=== PATIENT | male | born 1990 | race Caucasian/White ===

== ENCOUNTER 2019-03-04 11:25 | Emergency (ER) | payer BC ==
[2019-03-04 13:10] LABS: Urine Appearance Clear; Urine Bilirubin Negative (Negative); Urine Blood Negative (Negative); Urine Color Straw; Urine Glucose Negative (Negative); Urine Ketones Negative (Negative); Urine Nitrite Negative (Negative); Urine Protein Negative (Negative); Urine Specific Gravity 1.004 (1.010-1.030); Urine Urobilinogen Negative (Negative)
[2019-03-04 13:43] VITALS: BP 124/79
--- NOTE | 2019-03-04 13:50 | ED ---
Abdominal Pain/Male - HPI Summary HPI Summary: Patient is a 28-year-old male presenting to the ED with LLQ pain after his corgi jumped up on his lap. He states he felt immediate 10/10 pain into the LLQ which radiated down into the groin and into the left flank. He states symptoms remained for 30 minutes to 1 hour before they started to dissipate. He is endorsing a dull ache now, but no severe pain. He states he was able to eat and drink following the trauma. He also states he has remained ambulatory. There is no bruising to the area. He denies any other symptoms including urinary symptoms or back pain otherwise. No history of abdominal surgeries, however had a hydrocelectomy as a child. He denies any testicular pain. - History of Current Complaint Chief Complaint: EDAbdPain Stated Complaint: SHARP LOWER ABD/FLANK PAIN PER PT Time Seen by Provider: 03/04/19 12:12 Hx Obtained From: Patient Onset/Duration: Sudden Onset Timing: Constant Severity Initially: Moderate Severity Currently: Moderate Pain Intensity: 0 Pain Scale Used: 0-10 Numeric Radiates: Yes Radiates to: Flank Character: Cramping Aggravating Factor(s): Nothing Alleviating Factor(s): Nothing Associated Signs And Symptoms: Positive: Negative. Negative: Fever, Cough, Constipation, Blood in Stool, Urinary Symptoms, Decreased Appetite, Vomiting, Diarrhea, Penile Discharge - Risk Factors Testicular Torsion: Negative Cardiac Risk Factors: Negative - Allergies/Home Medications Allergies/Adverse Reactions: Allergies Allergy/AdvReac Type Severity Reaction Status Date / Time amoxicillin Allergy Hives Verified 09/14/18 20:57 PMH/Surg Hx/FS Hx/Imm Hx Previously Healthy: Yes - Immunization History Hx Pertussis Vaccination: No Immunizations Up to Date: Yes Infectious Disease History: No Infectious Disease History: Denies: Traveled Outside the [place] in Last 30 Days - Family History Known Family History: Positive: None - Social History Occupation: Employed Full-time Lives: With Family Alcohol Use: Weekly Alcohol Amount: one drink Hx Substance Use: No Substance Use Type: Reports: None Hx Tobacco Use: Yes Smoking Status (MU): Heavy Every Day Tobacco Smoker Have You Smoked in the Last Year: Yes Review of Systems Negative: Fever, Chills, Fatigue, Skin Diaphoresis Negative: Palpitations, Chest Pain Negative: Shortness Of Breath, Cough Positive: Abdominal Pain - left lower quadrant pain Genitourinary: Negative Positive: no symptoms reported, see HPI Negative: Arthralgia, Myalgia Skin: Negative Neurological: Negative All Other Systems Reviewed And Are Negative: Yes - the level to light Physical Exam Triage Information Reviewed: Yes Vital Signs On Initial Exam: Initial Vitals Temp Pulse Resp BP Pulse Ox 98.8 F 95 18 137/91 99 03/04/19 11:28 03/04/19 11:28 03/04/19 11:28 03/04/19 11:28 03/04/19 11:28 Vital Signs Reviewed: Yes Appearance: Positive: Well-Appearing, Well-Nourished Skin: Positive: Warm, Skin Color Reflects Adequate Perfusion Head/Face: Positive: Normal Head/Face Inspection Eyes: Positive: EOMI, KRIS, Conjunctiva Clear Neck: Positive: Supple, No Lymphadenopathy Respiratory/Lung Sounds: Positive: Clear to Auscultation, Breath Sounds Present Cardiovascular: Positive: RRR, Pulses are Symmetrical in both Upper and Lower Extremities Bowel Sounds: Positive: Present Musculoskeletal: Positive: Normal, Strength/ROM Intact Neurological: Positive: Sensory/Motor Intact, Alert, Oriented to Person Place, Time, Speech Normal Psychiatric: Positive: Normal, Affect/Mood Appropriate AVPU Assessment: Alert Diagnostics - Vital Signs Vital Signs Temp Pulse Resp BP Pulse Ox 03/04/19 13:25 98.0 F 80 16 124/79 98 03/04/19 11:28 98.8 F 95 18 137/91 99 - Laboratory Lab Results: Lab Results 03/04/19 Range/Units 12:44 Urine Color Straw Urine Appearance Clear Urine pH 7.0 (5-9) Ur Specific [place] 1.004 L (1.010-1.030) Urine Protein Negative (Negative) Urine Ketones Negative (Negative) Urine Blood Negative (Negative) Urine Nitrate Negative (Negative) Urine Bilirubin Negative (Negative) Urine Urobilinogen Negative (Negative) Ur Leukocyte Esterase Negative (Negative) Urine Glucose Negative (Negative) Lab Statement: Any lab studies that have been ordered have been reviewed, and results considered in the medical decision making process. Abdominal Pain Male Course/Dx - Course Course Of Treatment: During this course treatment, the patient is evaluated for LLQ pain which is radiating to the left flank and left inguinal area. On physical examination, there is no evidence of trauma including ecchymosis, bulging, erythema or evidence of a hernia. The testicle is without pain, erythema or evidence of torsion. No flank pain bilaterally. Patient states his current pain is rated a 2/10, down from 10/10 prior to arrival. UA obtained which is negative for any findings. Patient eating and drinking well in the ED. ambulating well. - Diagnoses Differential Diagnosis/HQI/PQRI: Constipation, Diverticulitis, Testicular Torsion, Ureteral Stone, Urinary Tract Infection Provider Diagnoses: Left lower quadrant pain Discharge - Sign-Out/Discharge Documenting (check all that apply): Patient Departure Patient Received Moderate/Deep Sedation with Procedure: No - Discharge Plan Condition: Stable Disposition: HOME Patient Education Materials: Contusion in Adults (ED) Forms: *Work Release Referrals: Isidoro Galloway DO [Primary Care Provider] - Additional Instructions: You have a contusion to the left lower abdomen If you begin to have any worsening symptoms, please return to the ED Tylenol 650mg three times daily for discomfort Moist heat to the area - Billing Disposition and Condition Condition: STABLE Disposition: Home - Attestation Statements Scribe Attestation: I was available for consultation for this patient. I did not evaluate the patient or participate in any medical decision making or disposition decisions unless I am specifically named in the chart as having consulted on the patient. If I have consulted on the patient, please see my own ED note on the patient encounter. Devendra Mendenhall MD
== END 2019-03-04 13:28 | disposition home or self-care (01) ==
LOC: ED 11:25
DX: R10.32 Left lower quadrant pain (principal); Z72.0 Tobacco use
CPT/HCPCS: 81003; 99281

== ENCOUNTER 2019-05-14 20:57 | Emergency (ER) | payer BC ==
--- OUTSIDE RECORDS SUMMARY | 2019-05-14 21:03 | XMS REPORT | Summary of Care ---
:1990 Author Organization [facility] Address [address] [place] [place] [address] Care Team Providers Name Role Phone Isidoro Galloway DO Primary Care Provider Reason for Visit Reason Comments Follow Up follow up from last week; neck pain worsened to point of difficulty swallowing; yesturday not as bad and left ear continues to be painful Encounter Details Date Type Department Care Team Description 03/29/2019 Office Visit [facility] Isidoro Galloway, Strain of sternocleidomastoid muscle, subsequent encounter (Primary Dx); Practice DO Dysfunction of Eustachian tube, unspecified laterality; [address] [place] [address] [address] [phone] [place] [address] [phone] Allergies Active Allergy Reactions Severity Noted Date Comments Amoxicillin Hives 09/26/2018 documented as of this encounter (statuses as of 03/29/2019) Medications Medication Sig Dispensed Refills Start Date End Date Status amphetamine-dextroamphetam Take 1 Tab by 0 Active ine (ADDERALL, 10MG,) 10 mouth TWICE MG Oral Tab DAILY. amphetamine-dextroamphetam Take 20 mg by 0 Active ine (ADDERALL XR) 20 MG mouth TWICE Oral CAPSULE SR 24 HR DAILY. citalopram (CELEXA) 20 MG Take 20 mg by 0 Active Oral Tab mouth DAILY. lamotrigine (LAMICTAL) 100 Take 100 mg by 0 Active MG Oral Tab mouth DAILY. cyclobenzaprine (FLEXERIL) Take 1 Tab by 7 Tab 0 03/20/2019 Active 10 MG Oral TabIndications: mouth EVERY Strain of BEDTIME. sternocleidomastoid muscle, initial encounter Omeprazole 40 MG Oral Take 1 Cap by 90 Cap 1 03/20/2019 Active CAPSULE DELAYED mouth BEFORE RELEASEIndications: BREAKFAST. Gastroesophageal reflux disease, esophagitis presence not specified Varenicline Tartrate 0.5 Take 1 Package 1 Kit 0 03/20/2019 Active MG X 11 & 1 MG X 42 Oral by mouth MiscIndications: Smoking DIRECTED. trying to quit mometasone (NASONEX) 50 [place] 2 Sprays 1 Bottle 4 03/20/2019 Active MCG/ACT Nasal in nose SuspensionIndications: DIRECTED. 2 Chronic rhinitis, ETD sprays in each (Eustachian tube nostril once dysfunction), bilateral daily documented as of this encounter (statuses as of 03/29/2019) Active Problems Problem Noted Date Anxiety and depression ADD (attention deficit disorder) Celiac disease GERD (gastroesophageal reflux disease) documented as of this encounter (statuses as of 03/29/2019) Immunizations Name Administration Dates Next Due PNEUMOCOCCAL POLYSACCHARIDE VACCINE 09/26/2018 documented as of this encounter Social History Tobacco Use Types Packs/Day Years Used Date Current Every Day Smoker 1 8 Smokeless Tobacco: Never Used Alcohol Use Drinks/Week oz/Week Comments Yes few drinks on the weekend Sex Assigned at Date Recorded Not on file Job Start Date Occupation Industry Not on file Not on file Not on file Travel History Travel Start Travel End No recent travel history available. documented as of this encounter Last Filed Vital Signs Vital Sign Reading Time Taken Comments Blood Pressure 132/78 03/29/2019 8:42 AM EDT Pulse 82 03/29/2019 8:42 AM EDT Temperature - - Respiratory Rate - - Oxygen Saturation 99% 03/29/2019 8:42 AM EDT Inhaled Oxygen Concentration - - Weight 93.4 kg (206 lb) 03/29/2019 8:42 AM EDT Height 177.8 cm (5' 10") 03/29/2019 8:42 AM EDT Body Mass Index 29.56 03/29/2019 8:42 AM EDT documented in this encounter Progress Notes Isidoro Galloway, - 03/29/2019 8:40 AM EDT PATIENT: Kevyn Del Valle : 1990 DATE OF SERVICE: 03/29/2019 CHIEF COMPLAINT: Chief Complaint Patient presents with Follow Up follow up from last week; neck pain worsened to point of difficulty swallowing ; yesturday not as bad and left ear continues to be painful Subjective HISTORY OF PRESENT ILLNESS: Kevyn Del Valle is a 28-y.o. male. HPI Follow up Left SCM strain my diagnosis 1+ week ago Plan was nsaid and flexeril It was getting better until 2 days ago when it became more painful and now last 2 days pain free No neck masses he feels Had trouble swallowing for a day he feels but that resolved On PPI and no heartburn Left ETD and chronic rhinitis: On nasonex No affect yet Compliant Past Medical History: Diagnosis Date ADD (attention deficit disorder) Anxiety and depression Celiac disease GERD (gastroesophageal reflux disease) PUD (peptic ulcer disease) History reviewed. No pertinent family history. Current Outpatient Medications Medication Sig amphetamine-dextroamphetamine (ADDERALL XR) 20 MG Oral CAPSULE SR 24 HR Take 20 mg by mouth TWICE DAILY. amphetamine-dextroamphetamine (ADDERALL, 10MG,) 10 MG Oral Tab Take 1 Tab by mouth TWICE DAILY. citalopram (CELEXA) 20 MG Oral Tab Take 20 mg by mouth DAILY. cyclobenzaprine (FLEXERIL) 10 MG Oral Tab Take 1 Tab by mouth EVERY BEDTIME. lamotrigine (LAMICTAL) 100 MG Oral Tab Take 100 mg by mouth DAILY. mometasone (NASONEX) 50 MCG/ACT Nasal Suspension [place] 2 Sprays in nose DIRECTED. 2 spraysin each nostril once daily Omeprazole 40 MG Oral CAPSULE DELAYED RELEASE Take 1 Cap by mouth BEFORE BREAKFAST. Varenicline Tartrate 0.5 MG X 11 & 1 MG X 42 Oral Misc Take 1 Package by mouth DIRECTED. No current facility-administered medications for this visit. Allergies Allergen Reactions Amoxicillin Hives Social History Socioeconomic History Marital status: Single Spouse name: Not on file Number of children: Not on file Years of education: Not on file Highest education level: Not on file Occupational History Not on file Social Needs Financial resource strain: Not on file Food insecurity: Worry: Not on file Inability: Not on file Transportation needs: Medical: Not on file Non-medical: Not on file Tobacco Use Smoking status: Current Every Day Smoker Packs/day: 1.00 Years: 8.00 Pack years: 8.00 Smokeless tobacco: Never Used Substance and Sexual Activity Alcohol use: Yes Comment: few drinks on the weekend Drug use: Not Currently Sexual activity: Yes Partners: Female Lifestyle Physical activity: Days per week: Not on file Minutes per session: Not on file Stress: Not on file Relationships Social connections: Talks on phone: Not on file Gets together: Not on file Attends christianity service: Not on file Active member of club or organization: Not on file Attends meetings of clubs or organizations: Not on file Relationship status: Not on file Intimate partner violence: Fear of current or ex partner: Not on file Emotionally abused: Not on file Physically abused: Not on file Forced sexual activity: Not on file Other Topics Concern Not on file Social History Narrative Moved here as [place] got into grad school 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 Cardiovascular: Negative for chest pain. Gastrointestinal: Negative for abdominal pain. Neurological: Negative for dizziness. Objective PHYSICAL EXAM: VITALS: BP 132/78 (BP Location: Left arm, Patient Position: Sitting) | Pulse 82 | Ht 5' 10" (1.778 m) | Wt 206 lb (93.4 kg) | SpO2 99% | BMI 29.56 kg/m Body mass index is 29.56 kg/m. Physical Exam Constitutional: He appears well-developed and well-nourished. No distress. HENT: Head: Normocephalic and atraumatic. Mouth/Throat: Oropharynx is clear and moist. No oropharyngeal exudate. Neck: Normal range of motion. Neck supple. No masses in neck Cardiovascular: Normal rate and regular rhythm. Pulmonary/Chest: Effort normal and breath sounds normal. Musculoskeletal: No left SCM tenderness like last time and he also in general feels pain free now Skin: He is not diaphoretic. ASSESSMENT / IMPRESSION: ICD-9-CM ICD-10-CM 1. Strain of sternocleidomastoid muscle, subsequent encounter V58.89 S16.1XXD 847.0 2. Dysfunction of Eustachian tube, unspecified laterality 381.81 H69.80 3. Chronic rhinitis 472.0 J31.0 Plan SCM strain: resolved by hx and exam. Follow up if returns. Will image if happens again ETD and rhinitis: told to give 4 weeks on nasal spray Author: Isidoro Galloway DO 03/29/2019 12:12 documented in this encounter Plan of Treatment Health Maintenance Due Date Last Done Comments INFLUENZA VACCINE (#1) 2019 HIV SCREENING 09/27/2019 Postponed from 2006 (Patient refused) DEPRESSION SCREENING 09/26/2021 Postponed from 2003 (Other) PNEUMOCOCCAL 0-64 YRS Completed 09/26/2018 HPV IMMUNIZATION SERIES Aged Out No longer eligible based on patient's age to complete this topic MENINGOCOCCAL VACCINE IMM Aged Out No longer eligible based on patient's age to complete this topic documented as of this encounter Goals Goal Patient Goal Associated Recent Patient-Stated? Author Type Problems Progress Depression Depression No Isidoro Galloway screen (PHQ-9) DO Raheel total score < 5 Note: This is an individualized treatment (depression) goal for Kevyn Del Valle: Displayed above is your goal for a depression screening (PHQ-9) score that would indicate good control of your depression. Keep a regular sleep schedule Lifestyle No Isidoro Galloway DO Note: This is an individualized lifestyle goal for Kevyn Del Valle: Please maintain a regular sleep schedule. This may help with some symptoms of depression. Take all prescribed medications as directed Self-management No Isidoro Galloway DO Note: This is an individualized self-management goal for Kevyn Del Valle: Please take all prescribed medications as directed. 1. Do not skip doses. If you cannot afford your medications, talk with your doctor. 2. Use a pill reminder system such as a pill box if needed. Your pharmacist can help you with this. 3. Contact your Pharmacy 5 days before your medication runs out. If you cannot take your medications for any reasons, talk with your doctor. 4. Please bring all of your medication bottles and inhalers (or a list of all your medications/inhalers) with you to every visit. Potential barriers to meeting all of your care plan goals will continue to be addressed on an ongoing basis. documented as of this encounter Results Not on filedocumented in this encounter Visit Diagnoses Diagnosis Strain of sternocleidomastoid muscle, subsequent encounter - Primary Dysfunction of Eustachian tube, unspecified laterality Chronic rhinitis documented in this encounter (Home) [id number] [phone] [place], [place] (Work) [id number] documented as of this encounter
--- OUTSIDE RECORDS SUMMARY | 2019-05-14 21:03 | XMS REPORT | Summary of Care ---
:1990 Author Organization [facility] Address [address] [address] Care Team Providers Name Role Phone Nilesh Isidoro Pickering DO Primary Care Provider Encounter Details Date Type Department Care Team Description 04/12/2019 Hospital Encounter [facility] Torres, Short Procedure Preprocedure MD Roger [address] [place] [address] [phone] Allergies Active Allergy Reactions Severity Noted Date Comments Amoxicillin Hives 09/26/2018 documented as of this encounter (statuses as of 04/13/2019) Medications Medication Sig Dispensed Refills Start Date End Date Status amphetamine-dextroamphet Take 1 Tab 0 Active amine (ADDERALL, 10MG,) by mouth 10 MG Oral Tab TWICE DAILY. amphetamine-dextroamphet Take 20 mg 0 Active amine (ADDERALL XR) 20 by mouth MG Oral CAPSULE SR 24 HR TWICE DAILY. citalopram (CELEXA) 20 Take 20 mg 0 Active MG Oral Tab by mouth DAILY. lamotrigine (LAMICTAL) Take 100 mg 0 Active 100 MG Oral Tab by mouth DAILY. Omeprazole 40 MG Oral Take 1 Cap 90 Cap 1 03/20/2019 Active CAPSULE DELAYED by mouth RELEASEIndications: BEFORE Gastroesophageal reflux BREAKFAST. disease, esophagitis presence not specified Varenicline Tartrate 0.5 Take 1 1 Kit 0 03/20/2019 Active MG X 11 & 1 MG X 42 Oral Package by MiscIndications: Smoking mouth trying to quit DIRECTED. mometasone (NASONEX) 50 [place] 2 1 Bottle 4 03/20/2019 Active MCG/ACT Nasal Sprays in SuspensionIndications: nose Chronic rhinitis, ETD DIRECTED. 2 (Eustachian tube sprays in dysfunction), bilateral each nostril once daily cyclobenzaprine Take 1 Tab 7 Tab 0 03/20/2019 04/09/20 Discontinued (FLEXERIL) 10 MG Oral by mouth 19 TabIndications: Strain EVERY of sternocleidomastoid BEDTIME. muscle, initial encounter documented as of this encounter (statuses as of 04/13/2019) Active Problems Problem Noted Date Anxiety and depression ADD (attention deficit disorder) Celiac disease GERD (gastroesophageal reflux disease) documented as of this encounter (statuses as of 04/13/2019) Immunizations Name Administration Dates Next Due PNEUMOCOCCAL [...] Sign Reading Time Taken Comments Blood Pressure 139/88 04/12/2019 3:15 PM EDT Pulse 80 04/12/2019 3:15 PM EDT Temperature 36.7 04/12/2019 3:15 PM EDT C (98 F) Respiratory Rate 20 04/12/2019 3:15 PM EDT Oxygen Saturation 99% 04/12/2019 3:10 PM EDT Inhaled Oxygen Concentration - - Weight 91.6 kg (202 lb) 04/12/2019 12:24 PM EDT Height 177.8 cm (5' 10") 04/12/2019 12:24 PM EDT Body Mass Index 28.98 04/12/2019 12:24 PM EDT documented in this encounter Discharge Summaries Roger Macdonald MD - 04/12/2019 8:18 AM EDT [address] [address] Discharge Summary Patient ID: Kevyn Spoto [id number] 28-y.o. 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 * ADDERALL XR 20 MG Cp24 Generic drug: amphetamine-dextroamphetamine Dose: 20 mg Refills: 0 Take 20 mg by mouth TWICE DAILY. CELEXA 20 MG Tabs Generic drug: citalopram Dose: 20 mg Refills: 0 Take 20 mg by mouth DAILY. LAMICTAL 100 MG Tabs Generic drug: lamotrigine Dose: 100 mg Refills: 0 Take 100 mg by mouth DAILY. mometasone 50 MCG/ACT Susp Commonly known as: NASONEX Dose: 2 [place] Quantity: 1 Bottle Refills: 4 [place] 2 Sprays in nose DIRECTED. 2 sprays in each nostril once daily Omeprazole 40 MG Cpdr Dose: 40 mg Quantity: 90 Cap Refills: 1 Take 1 Cap by mouth BEFORE BREAKFAST. Varenicline Tartrate 0.5 MG X 11 & 1 MG X 42 Misc Dose: 1 Package Quantity: 1 Kit Refills: 0 Take 1 Package by mouth DIRECTED. * This list has 2 medication(s) that are the same as other medications prescribed for you. Read thedirections carefully, and ask your doctor or other care provider to review them with you. Oxygen or Positive Pressure Devices: none Patient Instructions: Activity: activity as tolerated and no driving for today Wound Care: None needed Disposition: home/ self care routine Follow-Up: Follow up with Dr. Roger Macdonald MD in 4 weeks. Reason: Post Operative Diet: Regular Diet Total duration of time spent: 30 minutes. Provider Signature: Roger Macdonald MD documented in this encounter Discharge Instructions Susanne Garcia RN - 04/12/2019Provider's Instructions Reason for Admission or Diagnosis:<principal problem not specified> Short Frenulum of Penis Goals:Prevent readmission and improve functional health status: . Activity/Restrictions: activity as tolerated and no driving for today and ambulate in house Skin/Wound Care: Keep wound clean and dry Discharge Diet: Regular Diet Special Instructions: Maintain good hydration 1) Apply Neosporin ointment locally TID 2) Ok to shower and get incision wet after 48 hours. Discharge Provider: Roger Macdonald MD Attending: Roger Macdonald,* Time: 13:47 {Provider's stop here} Nurse's Instructions Problems to report to your Physician: Excessive pain or discomfort Fever > 100.5 degrees Inability to urinate AttachmentsThe following attachments cannot be sent through Care Everywhere.General Anesthesia Discharge Instructions (Belarusian)documented in this encounter Plan of Treatment Date Type Specialty Care Team Description 05/16/2019 Office Visit Urology Roger Macdonald MD [address] [place] [address] Health Maintenance Due Date Last Done Comments [...] Results Not on filedocumented in this encounter Administered Medications Medication Order MAR Action Action Date Dose Rate Site BACITRACIN-POLYMYXIN B [id number] UNIT/GM EX OINT 1 dose, Starting Mon04/12/19 at 1329, Until Mon04/12/19 at 1800, RADHA SOLIS: cabinet override, BUPIVACAINE HCL (PF) 0.25 % IJ SOLN 1 dose, Starting Mon04/12/19 at 1328, Until Mon04/12/19 at 1800, RADHA SOLIS: cabinet override, FentaNYL (PF) (SUBLIMAZE) injection (PF) 25 mcg 25 mcg, Intravenous Push, PRU Q5MIN PRN, Starting Mon04/12/19 at 1412, Until Mon04/12/19 at 1800, Mild Pain (pain scale 1-3) - IV - 1st line - if immediate effect required or patient cannot tolerate PO, 4 Recovery FentaNYL (PF) (SUBLIMAZE) injection (PF) 50 mcg 50 mcg, Intravenous Push, PRU Q5MIN PRN, Starting Mon04/12/19 at 1412, Until Mon04/12/19 at 1800, Moderate Pain (pain scale 4-6) - IV - 1st line - if immediate effect required or patient cannot tolerate PO, Severe Pain (pain scale 7-10) - IV - 1st line - if immediate effect required or patient cannot tolerate PO, 4 Recovery haloperidol (HALDOL) injection 0.65 mg 0.65 mg, Intravenous Push, PRU X1 PRN, 1 dose, Starting Mon04/12/19 at 1412, Until Mon04/12/19 at 1800, Nausea/Vomiting - IV - 3rd line - if immediate effect required or patient cannot tolerate PO and no relief 1 hour after administration of 2nd line agent, 4 Recovery HYDROmorphone (DILAUDID) syringe 0.3 mg 0.3 mg, Intravenous Push, PRU Q5MIN PRN, Starting Mon04/12/19 at 1412, Until Mon04/12/19 at 1800, Mild Pain (pain scale 1-3) IV - 2nd line - if immediate effect required or cannot tolerate PO & still had mild pain 4 hrs after admin of 1st line agent or patient did not tolerate 1st line agent, 4 Recovery HYDROmorphone (DILAUDID) syringe 0.5 mg 0.5 mg, Intravenous Push, PRU Q5MIN PRN, 2 doses, Starting Mon04/12/19 at 1412 , Until Mon04/12/19 at 1800, Moderate Pain (pain scale 4-6)IV 2nd line- if immediate effect required or cannot tolerate PO & still had moderate pain 2 hrs after admin of 1st line agent or did not tolerate 1st line agent, Severe Pain (pain scale 7-10)IV 2nd line - if immediate effect required or cannot tolerate PO & no still has severe pain 1 hr after admin of 1st line agent or did not tolerate 1st line agent, 4 Recovery meperidine (DEMEROL) syringe 25 mg 25 mg, Intravenous Push, PRU Q5MIN PRN, 2 doses, Starting Mon04/12/19 at 1412, Until Mon04/12/19 at 1800, Shivering/Chills/Rigors, 4 Recovery midazolam (VERSED) injection 0.5 mg 0.5 mg, Intravenous Push, PRU Q5MIN PRN, Starting Mon04/12/19 at 1412, Until Mon04/12/19 at 1800, Anxiety - IV - 1st line - if immediate effect required or patient cannot tolerate PO, 4 Recovery ondansetron (ZOFRAN) injection 4 mg 4 mg, Intravenous Push, PRU X1 PRN, 1 dose, Starting Mon04/12/19 at 1412, Until Mon04/12/19 at 1800, Nausea/Vomiting - IV - 1st line - If immediate effect required or patient cannot tolerate PO, 4 Recovery POVIDONE-IODINE 10 % EX SOLN 1 dose, Starting Mon04/12/19 at 1328, Until Mon04/12/19 at 1800, RADHA SOLIS: cabinet override, POVIDONE-IODINE 7.5 % EX SOLN 1 dose, Starting Mon04/12/19 at 1328, Until Mon04/12/19 at 1800, RADHA SOLIS: cabinet override, prochlorperazine (COMPAZINE) injection 2.5 mg 2.5 mg, Intravenous Push, PRU PRN, 2 doses, Starting Mon04/12/19 at 1412, Until Mon04/12/19 at 1800, Nausea/Vomiting - IV - 2nd line - if immediate effect required or patient cannot tolerate PO and no relief 1 hours after administration of 1st line agent, 4 Recovery documented in this encounter Insurance Payer Benefit Plan / Subscriber ID Effective Dates Phone Address Type Group BCBS EMPIRE BCBS EMPIRE xxxxxxxxxxxx 2018-Present Blue [employer]/Blue Shield (Home) Road [facility] [id number] [phone] [place], [place] (Work) [id number] documented as of this encounter Advance Directives Code Status Date Activated Date Inactivated Comments Full Code 04/12/2019 3:58 PM Does the patient have decision making capacity? Yes Order was discussed with: Patient I discussed all options and patient/surrogate requested and agreed to: Full Code
--- OUTSIDE RECORDS SUMMARY | 2019-05-14 21:04 | XMS REPORT | Summary of Care ---
:1990 Author Organization [facility] Address [address] [facility] [place] [address] Care Team Providers Name Role Phone Isidoro Galloway DO Primary Care Provider Reason for Visit Reason Comments Sore Throat c/o increased pain/ tingling sensation periodically in thoat (larnyx area/kothari apple) for past couple weeks. with chronic ear issue and congestion Medication Refill need refill on omeprazole Encounter Details Date Type Department Care Team Description 03/20/2019 Office Visit [facility] Isidoro Galloway, Strain of sternocleidomastoid muscle, initial encounter (Primary Dx); Practice DO Gastroesophageal reflux disease, esophagitis presence not specified; [address] [facility] Smoking trying to quit; [place] [address] Road Chronic rhinitis; [phone] [place], [place] ETD (Eustachian tube dysfunction), bilateral [address] [phone] Allergies Active Allergy Reactions Severity Noted Date Comments Amoxicillin Hives 09/26/2018 documented as of this encounter (statuses as of 03/20/2019) Medications Medication Sig Dispensed Refills Start End Date Status Date amphetamine-dextroamphe Take 1 Tab 0 Active tamine (ADDERALL, by mouth 10MG,) 10 MG Oral Tab TWICE DAILY. amphetamine-dextroamphe Take 20 mg 0 Active tamine (ADDERALL XR) 20 by mouth MG Oral CAPSULE SR 24 TWICE HR DAILY. citalopram (CELEXA) 20 Take 20 mg 0 Active MG Oral Tab by mouth DAILY. lamotrigine (LAMICTAL) Take 100 mg 0 Active 100 MG Oral Tab by mouth DAILY. cyclobenzaprine Take 1 Tab 7 Tab 0 Active (FLEXERIL) 10 MG Oral by mouth 9 TabIndications: Strain EVERY of sternocleidomastoid BEDTIME. muscle, initial encounter Omeprazole 40 MG Oral Take 1 Cap 90 Cap 1 Active CAPSULE DELAYED by mouth 9 RELEASEIndications: BEFORE Gastroesophageal reflux BREAKFAST. disease, esophagitis presence not specified Varenicline Tartrate Take 1 1 Kit 0 Active 0.5 MG X 11 & 1 MG X 42 Package by 9 Oral MiscIndications: mouth Smoking trying to quit DIRECTED. mometasone (NASONEX) 50 [place] 2 1 Bottle 4 Active MCG/ACT Nasal Sprays in 9 SuspensionIndications: nose Chronic rhinitis, ETD DIRECTED. 2 (Eustachian tube sprays in dysfunction), bilateral each nostril once daily Omeprazole 40 MG Oral Take 1 Cap 90 Cap 1 03/20/20 Discontinued CAPSULE DELAYED by mouth 9 19 (Reorder) RELEASEIndications: BEFORE Gastroesophageal reflux BREAKFAST. disease, esophagitis presence not specified documented as of this encounter (statuses as of 03/20/2019) Active Problems Problem Noted Date Anxiety and depression ADD (attention deficit disorder) Celiac disease GERD (gastroesophageal reflux disease) documented as of this encounter (statuses as of 03/20/2019) Immunizations Name Administration Dates Next Due PNEUMOCOCCAL [...] Sign Reading Time Taken Comments Blood Pressure 128/60 03/20/2019 11:28 AM EDT Pulse 81 03/20/2019 11:08 AM EDT Temperature - - Respiratory Rate - - Oxygen Saturation 98% 03/20/2019 11:08 AM EDT Inhaled Oxygen Concentration - - Weight 91.7 kg (202 lb 3.2 oz) 03/20/2019 11:08 AM EDT Height 177.8 cm (5' 10") 03/20/2019 11:08 AM EDT Body Mass Index 29.01 03/20/2019 11:08 AM EDT documented in this encounter Progress Notes Isidoro Galloway, DO - 03/20/2019 11:00 AM EDT PATIENT: Kevyn Del Valle : 1990 DATE OF SERVICE: 03/20/2019 CHIEF COMPLAINT: Chief Complaint Patient presents with Sore Throat c/o increased pain/ tingling sensation periodically in thoat (larnyx area/ kothari apple) for past couple weeks. with chronic ear issue and congestion Medication Refill need refill on omeprazole Subjective HISTORY OF PRESENT ILLNESS: Kevyn Del Valle is a 28-y.o. male. HPI Left anterior neck soreness for last few weeks No inciting events GERD: controlled with omeprazole Chronic rhinitis: Ear fullness too Nasal spray not fully effective OTC Tried zyrtec too Smoking: Nicotine addiction. We discussed the importance of smoking cessation as well as different ways to approach it. The patient is ready to set action plan and implement: chantix. A total of 4 minutes was spent with the patient today talking about smoking cessation. His mood is stable he states and aware of chantix potentially making it worse. If that happens, he agrees to stop chantix right away. Past Medical History: Diagnosis Date ADD (attention [...] DAILY. mometasone (NASONEX) 50 MCG/ACT Nasal Suspension [place] 2 Sprays in nose DIRECTED. 2 spraysin [...] file Gets together: Not on file Attends shinto service: Not on file Active member of [...] rosaline got into grad school Work: state [employer] home REVIEW OF SYSTEMS: Review of Systems Constitutional: Negative for fever. Cardiovascular: Negative for chest pain. Gastrointestinal: Negative for abdominal pain. Neurological: Negative for dizziness. Objective PHYSICAL EXAM: VITALS: BP 128/60 | Pulse 81 | Ht 5' 10" (1.778 m) | Wt 202 lb 3.2 oz (91.7 kg) | SpO2 98% | BMI 29.01 kg/m Body mass index is 29.01 kg/m. Physical Exam Constitutional: He appears well-developed and well-nourished. Non-toxic appearance. He does not appear ill. No distress. HENT: Head: Normocephalic and atraumatic. Right Ear: Tympanic membrane and ear canal normal. Left Ear: Tympanic membrane and ear canal normal. Mouth/Throat: Uvula is midline and oropharynx is clear and moist. Neck: Normal range of motion. Neck supple. No masses felt in neck exam Left SCM mild hypertrophy and tenderness reproduced. He agrees this is the pain that has been bothering him ASSESSMENT / IMPRESSION: ICD-9-CM ICD-10-CM 1. Strain of sternocleidomastoid muscle, initial encounter 847.0 S16.1XXA cyclobenzaprine (FLEXERIL)10 MG Oral Tab 2. Gastroesophageal reflux disease, esophagitis presence not specified 530.81 K21.9 Omeprazole 40 MGOral CAPSULE DELAYED RELEASE 3. Smoking trying to quit 305.1 Z72.0 Varenicline Tartrate 0.5 MG X 11 & 1 MG X 42 Oral Misc 4. Chronic rhinitis 472.0 J31.0 mometasone (NASONEX) 50 MCG/ACT Nasal Suspension 5. ETD (Eustachian tube dysfunction), bilateral 381.81 H69.83 mometasone ( NASONEX) 50 MCG/ACT Nasal Suspension Plan ETD and chronic rhinitis: try combination of nasonex and OTC xyzal GERD: continue PPI Smoking: chantix. Start today. Quit a week later. SCM strain: OTC motrin 400 mg for a week with food and flexeril qhs for a week too. If not better after a week, call me back. Author: Isidoro Galloway DO 03/20/2019 12:58 documented in this encounter Plan of Treatment Date Type Specialty Care Team Description 03/28/2019 Office Visit Urology Roger Macdonald MD [address] [place] [address] Health Maintenance Due Date Last [...] Author Type Problems Progress Depression Depression No Nilesh Isidoro screen (PHQ-9) RaheelDO total score < 5 Note: This is an individualized treatment (depression) goal for Kevyn Del Valle: Displayed above is your goal for a depression screening (PHQ-9) score that would indicate good control of your depression. Keep a regular sleep schedule Lifestyle No Galloway Isidoro Pickering DO Note: This is an individualized lifestyle goal for Kevyn Del Valle: Please maintain a regular sleep schedule. This may help with some symptoms of depression. Take all prescribed medications as directed Self-management No Nilesh Isidoro Pickering DO Note: This is an individualized self-management [...] Visit Diagnoses Diagnosis Strain of sternocleidomastoid muscle, initial encounter - Primary Gastroesophageal reflux disease, esophagitis presence not specified Smoking trying to quit Tobacco use disorder Chronic rhinitis ETD (Eustachian tube dysfunction), bilateral documented in this encounter (Home) [phone] [place], [place] (Work) [id number] documented as of this encounter
--- OUTSIDE RECORDS SUMMARY | 2019-05-14 21:04 | XMS REPORT | Summary of Care ---
:1990 Author Organization [facility] Address [address] [place] [address] Care Team Providers Name Role Phone Nilesh Isidoro Pickering DO Primary Care Provider Reason for Visit Reason Comments New Patient Encounter Details Date Type Department Care Team Description 03/28/2019 Office Visit [facility] Screening for blood or [address] [facility] MD [place] [address] 3 Marisa Brown (Primary Dx) [phone] [place] [address] [phone] Allergies Active Allergy Reactions Severity Noted Date Comments Amoxicillin Hives 09/26/2018 documented as of this encounter (statuses as of 03/28/2019) Medications Medication Sig Dispensed Refills Start Date [...] DIRECTED. trying to quit mometasone (NASONEX) 50 [place] 2 Sprays 1 Bottle 4 03/20/2019 Active MCG/ACT Nasal in nose SuspensionIndications: DIRECTED. 2 Chronic rhinitis, ETD sprays in each (Eustachian tube nostril once dysfunction), bilateral daily documented as of this encounter (statuses as of 03/28/2019) Active Problems Problem Noted Date Anxiety and depression ADD (attention deficit disorder) Celiac disease GERD (gastroesophageal reflux disease) documented as of this encounter (statuses as of 03/28/2019) Immunizations Name Administration Dates Next Due PNEUMOCOCCAL [...] of this encounter Last Filed Vital Signs Not on filedocumented in this encounter Progress Notes Roger Macdonald MD - 03/28/2019 3:30 PM EDT PATIENT: Kevyn Del Valle : 1990 DATE OF SERVICE: 03/28/2019 REFERRING PRACTITIONER: Manolo PRIMARY CARE PROVIDER: Isidoro Galloway CHIEF COMPLAINT: Chief Complaint Patient presents with New Patient Subjective HISTORY OF PRESENT ILLNESS: Kevyn Del Valle is a 28-y.o. male presenting with a history of a tight frenulum. He has had a circumcision in the past. He has been having discomfort during erection because of a tight frenulum. He does not have any problems achieving an erection however. He does not have any history of trauma or STI. On occasions because of tight frenulum he has had some tear of the frenulum causing little bleeding and pain. Denies any urinary symptoms. No family history of urological malignancies. Past Medical History: Diagnosis Date ADD (attention deficit disorder) Anxiety and depression Celiac disease GERD (gastroesophageal reflux disease) PUD (peptic ulcer disease) Past Surgical History: Procedure Laterality Date SEPTOPLASTY No family history on file. Current Outpatient Medications Medication Sig amphetamine-dextroamphetamine (ADDERALL [...] DAILY. mometasone (NASONEX) 50 MCG/ACT Nasal Suspension [place]ista 2 Sprays in nose DIRECTED. 2 spraysin [...] file Gets together: Not on file Attends holiness service: Not on file Active member of [...] rosaline got into grad school Work: [employer] REVIEW OF SYSTEMS: All remaining review of systems was negative except for as noted in the history of present illness/subjective. Objective PHYSICAL EXAMINATION: VITALS: There were no vitals taken for this visit. There is no height or weight on file to calculate BMI. GENERAL: healthy, well nourished, in no distress. NECK: no mass, no adenopathy, no thyromegaly. LUNGS: good air entry bilaterally, no crackles or wheezes. HEART: regular rhythm, no murmurs, no gallops, no rubs. ABDOMEN: no palpable masses, organomegaly or hernias, no peritoneal, flank or bladder tenderness. GENITOURINARY: Penis: circumcised, tight frenulum, Scrotum: no lesions, cysts , or hydrocele noted, Testicles: normal size,symmetry,position and consistency , Epididymus: nontender, no masses, RECTAL: exam deferred. LYMPHATIC: no inguinal adenopathy. SKIN: normal, no rashes or abnormalities noted. NEUROLOGICAL: alert and oriented x3. LABORATORY DATA: Urine today in the office is na DIAGNOSTIC DATA: Diagnostic tests reviewed today: none IMPRESSION: ICD-9-CM ICD-10-CM 1. Screening for blood or protein in urine V82.9 Z13.89 URINE DIP MANUAL (AMB POCT) During this visit, I reviewed the relevant imaging, pathology reports, laboratory reports, and previous clinical notes. Additional counseling and preparation time (which represents > 50 % of total visit time) was necessary for data gathering, reviewing studies and discussing options, in excess of interviewing the patient and/or family members. This time was used to discuss the the complex nature of the problem, various treatment options available and the expected outcomes of each to the patient/family's satisfaction. I discussed the options of frenuloplasty versus plastic surgical review in view of the tight frenulum. He would like to proceed with frenuloplasty and he understands the risks of failure. He is not keen on any plastic surgical consult at the moment and if the frenuloplasty does not rectify the situation he understands he would need more procedures and is happy to consider it at that point after detailed counseling is still keen on proceeding with phalloplasty and is willing to take his chances of failure. I have also explained the risks of pain bleeding infection and scarring and possible need of revision of procedure/plastic surgical consult. PLAN: Scheduled for Frenuloplasty after above explanation and patient is keen to proceed but prefers sedation/ GA for the procedure Author: Roger Macdonald MD 03/28/2019 12:13 documented in this encounter Plan of Treatment Date Type Specialty Care Team Description 03/29/2019 Office Visit Family Practice Isidoro Galloway DO [address] [place] [address] [phone] Health Maintenance Due Date Last Done Comments [...] an individualized treatment (depression) goal for Kevyn Sylvestero: Displayed above is your goal for a depression screening (PHQ-9) score that would indicate good control of your depression. Keep a regular sleep schedule Lifestyle No Isidoro Galloway DO Note: This is an individualized lifestyle goal for Kevyn Sylvestero: Please maintain a regular sleep schedule. This may help with some symptoms of depression. Take all prescribed medications as directed Self-management No Isidoro Galloway DO Note: This is an individualized self-management goal for Kevyn Sylvestero: Please take all prescribed medications as directed. [...] ongoing basis. documented as of this encounter Procedures Procedure Name Priority Date/Time Associated Diagnosis Comments URINE DIP MANUAL Routine 03/28/2019 12:09 PM Screening for blood Results for this (AMB POCT) EDT or protein in urine procedure are in the results section. documented in this encounter Results URINE DIP MANUAL (AMB POCT) (03/28/2019 12:09 PM EDT) URINE GLUCOSE (POCT) Negative Negative mg/dl [facility] POCT URINE BILIRUBIN Negative Negative [facility] [place] (POCT) POCT Urine Ketones (POCT) Negative Negative [facility] POCT URINE SPECIFIC 1.010 1.005 - 1.030 [facility] GRAVITY (POCT) POCT URINE BLOOD (POCT) Negative Negative [facility] POCT URINE PH (POCT) 7.5 5.0 - 8.0 [facility] POCT URINE PROTEIN (POCT) Negative Negative mg/dl [facility] POCT URINE UROBILINOGEN 0.2 0.2 - 1.0 mg/dl [facility] (POCT) POCT URINE NITRITES (POCT) Negative Negative [facility] POCT URINE LEUKOCYTES Negative Negative Cells/uL [facility] (POCT) POCT Specimen Urine Performing Organization Address City/State/Zipcode Phone Number [facility] [address] [address] [place] [address] documented in this encounter Visit Diagnoses Diagnosis Screening for blood or protein in urine - Primary Screening for unspecified condition documented in this encounter (Work) [id number] documented as of this encounter
[2019-05-14 21:10] VITALS: BP 142/83
--- NOTE | 2019-05-14 21:37 | UC ---
Respiratory Complaint HPI - HPI Summary HPI Summary: The patient is a 28-year-old male with a 1-2 day history of nasal congestion fever chills headache and myalgias. He has a mild sore throat. He thinks is due to all the coughing. His had no nausea vomiting or diarrhea. He has had a history of pneumonia. - History of Current Complaint Chief Complaint: UCGeneralIllness Stated Complaint: CONGESTION, DIZZINESS Time Seen by Provider: 05/14/19 21:23 Hx Obtained From: Patient Onset/Duration: Gradual Onset Timing: Constant Severity Initially: Mild Severity Currently: Severe Pain Intensity: 8 Pain Scale Used: 0-10 Numeric Character: Cough: Productive Aggravating Factors: Nothing Alleviating Factors: Nothing Associated Signs And Symptoms: Positive: Fever, Chills, URI - Allergies/Home Medications Allergies/Adverse Reactions: Allergies Allergy/AdvReac Type Severity Reaction Status Date / Time amoxicillin Allergy Intermediate Hives Verified 05/14/19 21:10 PMH/Surg Hx/FS Hx/Imm Hx Previously Healthy: Yes - Surgical History Surgical History: Yes Surgery Procedure, Year, and Place: septoplasty. hydro - Family History Known Family History: Positive: Hypertension - Social History Alcohol Use: Occasionally Alcohol Amount: one drink Substance Use Type: None Smoking Status (MU): Heavy Every Day Tobacco Smoker Have You Smoked in the Last Year: Yes Review of Systems All Other Systems Reviewed And Are Negative: Yes Constitutional: Positive: Fever, Chills Skin: Positive: Negative Eyes: Positive: Negative ENT: Positive: Sore Throat - mild..with cough, no trouble swallowing Respiratory: Positive: Cough Cardiovascular: Positive: Negative Gastrointestinal: Positive: Negative Genitourinary: Positive: Negative Motor: Positive: Negative Neurovascular: Positive: Negative Musculoskeletal: Positive: Negative Neurological: Positive: Negative Physical Exam Triage Information Reviewed: Yes Appearance: Well-Appearing, No Pain Distress, Well-Nourished Vital Signs: Initial Vital Signs Temp 99.9 F 05/14/19 21:05 Pulse 102 05/14/19 21:05 Resp 18 05/14/19 21:05 BP 142/83 05/14/19 21:05 Pulse Ox 97 05/14/19 21:05 Vital Signs Reviewed: Yes Eyes: Positive: Conjunctiva Clear ENT: Positive: Hearing grossly normal, Pharynx normal, Nasal congestion, Nasal drainage, TMs normal, Uvula midline. Negative: Tonsillar swelling, Tonsillar exudate, Trismus, Muffled voice, Hoarse voice, Dental tenderness, Sinus tenderness Neck: Positive: Supple, Nontender, No Lymphadenopathy Respiratory: Positive: No respiratory distress, No accessory muscle use, Wheezing - left lower lobe with forced expiration Cardiovascular: Positive: RRR, No Murmur Musculoskeletal: Positive: ROM Intact, No Edema Neurological: Positive: Alert Psychological Exam: Normal Skin Exam: Normal Diagnostics - Laboratory Lab Results: INFLUENZA (-) Respiratory Course/Dx - Differential Dx/Diagnosis Provider Diagnosis: Viral URI with cough, Vertigo Discharge ED - Sign-Out/Discharge Documenting (check all that apply): Post-Discharge Follow Up All imaging exams completed and their final reports reviewed: No - Discharge Plan Condition: Stable Disposition: HOME Patient Education Materials: Upper Respiratory Infection (ED), Vertigo (ED) Forms: *Work Release Referrals: Isidoro Galloway DO [Primary Care Provider] - 3 Days (if not better) - Billing Disposition and Condition Condition: STABLE Disposition: Home
[2019-05-14 21:48] LABS: Influenza A Molecular NEGATIVE (Negative); Influenza B Molecular NEGATIVE (Negative)
[2019-05-14] MEDS ORDERED: Benzonatate CAP* 100 MG PO ONE (21:54)
--- NOTE | 2019-05-15 10:19 | UC ---
- Progress Note Progress Note: Final radiologist reading for chest x-ray from May 14, 2019 comes back as COPD no acute disease process. Provider interpretation same date is not on the chart however the patient was not diagnosed with pneumonia therefore there is no discrepancy. Course/Dx - Diagnoses Provider Diagnoses: Viral URI with cough, Vertigo Discharge ED - Sign-Out/Discharge Documenting (check all that apply): Patient Departure All imaging exams completed and their final reports reviewed: Yes - Discharge Plan Condition: Stable Disposition: HOME Prescriptions: Benzonatate CAP* [Tessalon CAP*] 100 - 200 mg PO TID PRN #[id number] PRN Reason: Cough Patient Education Materials: Vertigo (ED), Upper Respiratory Infection (ED) Forms: *Work Release Referrals: Isidoro Galloway DO [Primary Care Provider] - 3 Days (if not better) - Billing Disposition and Condition Condition: STABLE Disposition: Home
== END 2019-05-14 22:05 | disposition home or self-care (01) ==
LOC: UCEAST 20:57
DX: J06.9 Acute upper respiratory infection, unspecified (principal); R05 Cough; R42 Dizziness and giddiness; M79.10 Myalgia, unspecified site; F17.210 Nicotine dependence, cigarettes, uncomplicated; Z88.0 Allergy status to penicillin
CPT/HCPCS: 71046; 99212; A9270-GY; G0463

== ENCOUNTER 2019-09-23 11:41 | Emergency (ER) | payer BC ==
--- NOTE | 2019-09-23 13:01 | UC ---
Abdominal Pain Male HPI - HPI Summary HPI Summary: 29-year-old male comes in with a chief complaint of right lower quadrant abdominal pain. Started about 2 weeks ago no known trauma. Pains by 6 out of 10 right now it is better to 9 out of 10 at worst. Standing makes the pain worse. Has not felt any masses in the area. No prior abdominal surgeries. No fevers or chills. Denies any dysuria. Still has an appetite eating and drinking well normal bowel movements. Pain does radiate down into the right groin. He denies testicular pain. Denies any concern of STI. Also has some pain in the right flank. No history of kidney stones. - History of Current Complaint Chief Complaint: UCAbdominalPain Stated Complaint: ABDOMINAL AND BACK PAIN Time Seen by Provider: 09/23/19 12:40 Pain Intensity: 7 - Allergies/Home Medications Allergies/Adverse Reactions: Allergies Allergy/AdvReac Type Severity Reaction Status Date / Time amoxicillin Allergy Intermediate Hives Verified 09/23/19 12:29 Home Medications: Home Medications Albuterol HFA INHALER* [Ventolin HFA Inhaler*] 2 puff INH Q6H PRN #1 mdi MDD 8 09/14/18 [Rx Confirmed 09/23/19] Amphetamine MIXED SALT TAB* [Adderall TAB*] 10 mg PO DAILY 09/14/18 [History Confirmed 09/23/19] Citalopram TAB* [Celexa TAB*] 20 mg PO DAILY 09/14/18 [History Confirmed ] Dextroamphetamine/Amphetamine [Adderall Xr 20 mg Capsule] 20 mg PO DAILY [History Confirmed 09/23/19] Omeprazole CAP (NF) [Prilosec CAP* 20 MG] 40 mg PO DAILY 09/14/18 [History Confirmed 09/23/19] lamoTRIgine TAB(*) [Lamictal TAB(*)] 100 mg PO DAILY 09/14/18 [History Confirmed 09/23/19] PMH/Surg Hx/FS Hx/Imm Hx Previously Healthy: Yes - Surgical History Surgical History: Yes Surgery Procedure, Year, and Place: septoplasty. hydro - Family History Known Family History: Positive: Hypertension, Non-Contributory - Social History Alcohol Use: Weekly Alcohol Amount: one drink Substance Use Type: None Smoking Status (MU): Heavy Every Day Tobacco Smoker Have You Smoked in the Last Year: Yes Review of Systems All Other Systems Reviewed And Are Negative: Yes Constitutional: Positive: Other - see hpi Skin: Positive: Negative Eyes: Positive: Negative ENT: Positive: Negative Respiratory: Positive: Negative Cardiovascular: Positive: Negative Gastrointestinal: Positive: Abdominal Pain Genitourinary: Positive: Negative Motor: Positive: Negative Neurovascular: Positive: Negative Musculoskeletal: Positive: Negative Neurological/Mental Status: Positive: Negative Psychological: Positive: Negative Is Patient Immunocompromised?: No Physical Exam Triage Information Reviewed: Yes Appearance: Well-Appearing, Well-Nourished, Pain Distress - mild with abdominal exam Vital Signs: Initial Vital Signs Temp 99.2 F 09/23/19 12:23 Pulse 82 09/23/19 12:23 Resp 16 09/23/19 12:23 BP 136/80 09/23/19 12:23 Pulse Ox 100 09/23/19 12:23 Vital Signs Reviewed: Yes Eye Exam: Normal Eyes: Positive: Conjunctiva Clear Neck: Positive: Supple Respiratory: Positive: Lungs clear, Normal breath sounds, No respiratory distress Cardiovascular: Positive: RRR Abdomen Description: Positive: Other: - Negative heel strike. Mildly positive obturator sign. Patient's tender to palpation in the right lower quadrant and into the right inguinal canal. Also mild right CVA tenderness to percussion. Bowel Sounds: Positive: Present Male Genital Exam: Positive: Other - No skin lesions. Both testicles are descended and nontender to palpation. Do not appreciate any swelling. Right inguinal canal is tender to palpation. Musculoskeletal: Positive: Strength Intact, ROM Intact Neurological: Positive: Alert, Muscle Tone Normal Psychological: Positive: Age Appropriate Behavior Skin Exam: Normal Abd Pain Male Course/Dx - Course Course Of Treatment: Medical Grade Shoemaker: Temo Gutierrez Daniel, ([id number]) Center Administrator: DOMENIC ( DOMENIC) Report Date: 09/23/2019 14:24:00 Report Status: Final ====== Start of Report Content Patient Name: LUKE DE LA CRUZ Medical Record# : [id number] Ordering Physician: Miah Dumont MD Acct.#: [id number] : 1990 Age: 29 Sex: M Location: [facility] Exam Date: 1254 ADM Status: [facility] ER Order Information: US TESTICULAR Accession Number: [id number] CPT: 39697 HISTORY: right groin pain COMPARISONS: None TECHNIQUE: Multiple transverse and longitudinal ultrasound images were obtained of the scrotum, using grayscale, color Doppler, and spectral Doppler imaging. Corrected images were obtained of the right inguinal region in the area of pain. FINDINGS: RIGHT: RIGHT TESTICLE: The right testicle measures 2.0 cm x 3.5 cm x 5.0 cm. There are scattered calcifications of the right testicle, less than 5 per field, without testicular parenchymal mass. Normal arterial and venous waveforms are identified within the right testicle on spectral Doppler imaging. RIGHT EPIDIDYMIS: The right epididymis measures 1.4 cm x 0.7 cm at the head. RIGHT SCROTUM: There is no hydrocele or varicocele. LEFT: LEFT TESTICLE: The left testicle measures 1.9 cm x 3.5 cm x 5.0 cm. There are scattered calcifications of the left testicle, less than 5 per field, without testicular parenchymal mass. Normal arterial and venous waveforms are identified within the left testicle on spectral Doppler imaging. LEFT EPIDIDYMIS: The left epididymis measures 1.2 cm x 1.1 cm at the head. There are epididymal head cysts measuring up to 0.4 cm. LEFT SCROTUM: There is no hydrocele or varicocele. OTHER: There is no sonographic abnormality in the area of right inguinal pain. IMPRESSION: 1. NO SONOGRAPHIC FEATURES OF TORSION. PLEASE NOTE THAT PARTIAL OR INTERMITTENT TORSION MAY BE SONOGRAPHICALLY NORMAL. 2. NO TESTICULAR PARENCHYMAL MASS. 3. SCATTERED TESTICULAR PARENCHYMAL CALCIFICATIONS , NOT MEETING THE CRITERIA FOR TESTICULAR MICROLITHIASIS. 4. NO SONOGRAPHIC ABNORMALITY IN THE AREA OF RIGHT INGUINAL PAIN. <Electronically signed by Temo Gutierrez MD in OV> 09/23/19 1420 Dictated By: Temo Gutierrez MD Dictated Date/Time: 09/12 Transcribed Date/Time: 09/23/191417 Copy to: CC:Isidoro Galloway DO ; Miah Dumont MD Imaging - [facility] Imaging - [facility] [address] [place] [address] ph ([phone]) ph ([phone]) ph ([phone]) ==== End of Report Content Medical Grade Shoemaker: Audrey Olivia S, ([id number]) Center Administrator: ROMÁNANCE, (NUANCE) Report Date: 09/23/2019 15:03:00 Report Status: Final Start of Report Content Patient Name: LUKE DE LA CRUZ Medical Record#: [id number] Ordering Physician: Miah Dumont MD Acct.#: [id number] : Age: 29 Sex: M Location: [facility] Exam Date: 09/23/19 1254 ADM Status: REG ER Order Information: CT ABD/PEL W/O Accession Number: [id number] CPT: 93776 Indication: Right lower quadrant pain, hematuria. CT of the abdomen and pelvis was performed without oral or IV contrast administration. Coronal and sagittal reconstructed images were obtained. The lung bases demonstrate no pleural fluid, nodules or masses. Heart is of normal size without pericardial effusion. Liver is normal in size. No focal lesions or intrahepatic duct dilatation is noted. The gallbladder demonstrates no calcified gallstones. No pericholecystic fluid or wall thickening is noted. The spleen is normal in size. No adrenal masses are noted. The kidneys demonstrate no hydronephrosis. There is a low density lesion in the head of the pancreas. This is of uncertain etiology. Contrast enhanced study may be helpful. No pancreatic duct dilatation is noted however. No adrenal masses are noted. The kidneys demonstrate no hydronephrosis. Aorta and inferior vena cava are unremarkable. The appendix is visualized. This may represent normal appendix. The urinary bladder is unremarkable. No evidence of renal or ureteral calculi is noted. No dilated loops of bowel are noted. IMPRESSION: No obstructive uropathy is noted. Normal appendix. In the head of the pancreas there is a low density area which is unclear the origin gestation. This may represent diverticula from bowel versus cystic lesion in the pancreas. Contrast-enhanced CT of the abdomen and pelvis may be helpful for further evaluation. Oral contrast was also be helpful. This could be done as an outpatient. <Electronically signed by Audrey Olivia MD in OV> 09/23/191458 Dictated By: Audrey Olivia MD Dictated Date/Time: 1454 Transcribed Date/Time: 09/23/191454 Copy to: CC:Isidoro Galloway DO ; Miah Dumont MD Imaging - [facility] Imaging - [place] [facility] Imaging - [facility] [address] [address] ph ([phone]) ph ([phone]) ph ([phone]) ==== End of Report Content I discussed the urinalysis, the ultrasound and the CT with the patient. Patient does have hematuria for that he'll be following up with his primary care doctor or urology. The finding of a potential pancreatic cyst versus diverticula of the colon is recommended further evaluation with a CT of IV and by mouth contrast. As we do not do contrast CTs her patient will be following up with his primary care doctor for that. CBC, CMP and lipase are drawn today with results pending. Plan will be to have the patient take ibuprofen and/or Tylenol to help with the pain follow-up with his primary care doctor and urology. We discussed that if the pain did not improve her got worse at any time he needed immediate evaluation in the emergency department. - Differential Dx/Clinical Impression Provider Diagnosis: Right sided abdominal pain, Right flank pain, Right groin pain, Hematuria Discharge ED - Sign-Out/Discharge Documenting (check all that apply): Patient Departure All imaging exams completed and their final reports reviewed: Yes - Discharge Plan Condition: Stable Disposition: HOME Patient Education Materials: Acute Abdominal Pain (ED), Flank Pain (ED), Hematuria (ED), Groin Pain (ED) Referrals: Isidoro Galloway DO [Primary Care Provider] - Boby Hung MD [Medical Doctor] - Allan Vail MD [Medical Doctor] - Additional Instructions: FOLLOW UP WITH YOUR PRIMARY CARE DOCTOR FOR YOUR RIGHT ABDOMINAL/FLANK/GROIN PAIN AND HEMATURIA. RADIOLOGY RECOMMENDED A CT WITH IV AND ORAL CONTRAST TO BETTER DETERMINE IF YOU HAVE A CYST IN YOUR PANCREAS. DISCUSS THIS WITH YOUR PRIMARY CARE DOCTOR. FOLLOW UP WITH UROLOGY FOR YOUR HEMATURIA. GO TO THE EMERGENCY DEPARTMENT IF NOT IMPROVED OR WORSE; PAIN, FEVER, YOU FEEL ILL OR ANY QUESTIONS OR CONCERNS. - Billing Disposition and Condition Condition: STABLE Disposition: Home
[2019-09-23 15:32] VITALS: BP 131/85
[2019-09-23 19:29] LABS: ABS Eosinophils 0.2 10^3/ul (0-0.6); ABS Lymphocytes 2.1 10^3/ul (1.0-4.8); ABS Monocytes 0.4 10^3/ul (0-0.8); ABS Neutrophils 4.6 10^3/ul (1.5-7.7); Eosinophil % 2.5 %; Hematocrit 45 % (42-52); Hemoglobin 15.3 g/dL (14.0-18.0); Lymphocyte % 28.8 %; Mean Corpuscular HGB Conc 34 g/dL (31-36); Mean Corpuscular Hemoglobin 31 pg (27-31); Mean Corpuscular Volume 89 fL (80-94); Mean Platelet Volume 9.8 fL (7.4-10.4); Nucleated Red Blood Cells % 0.3; Platelet Count 222 10^3/uL (150-450); Red Blood Count 4.98 10^6 /uL (4.18-5.48); Red Cell Distribution Width 13 % (10-15); White Blood Count 7.3 10^3/uL (3.5-10.8)
[2019-09-23 19:34] LABS: Albumin 4.9 g/dL (3.2-5.2); Calcium 9.9 mg/dL (8.6-10.3); Potassium 4.1 mmol/L (3.5-5.0); Total Bilirubin 0.5 mg/dL (0.2-1.0)
[2019-09-23 19:40] LABS: Albumin/Globulin Ratio 2.1 (1-3); BUN/Creatinine Ratio 12.9 (8-20); EGFR African American 129.9 (>60); EGFR Non-African American 107.3 (>60); Globulin 2.3 g/dL (2-4); Total Protein 7.2 g/dL (6.4-8.9)
== END 2019-09-23 15:30 | disposition home or self-care (01) ==
LOC: UCEAST 11:41
DX: R10.31 Right lower quadrant pain (principal); R31.9 Hematuria, unspecified; R10.30 Lower abdominal pain, unspecified; Z88.0 Allergy status to penicillin; F17.290 Nicotine dependence, other tobacco product, uncomplicated
CPT/HCPCS: 36415; 74176; 76870; 80053; 81003; 83690; 85025; 99212; G0463

== ENCOUNTER 2019-09-30 09:10 | Emergency (ER) | payer SELFPAY ==
--- OUTSIDE RECORDS SUMMARY | 2019-09-30 09:18 | XMS REPORT | Summary of Care ---
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 [address] [place] [id number] MRI/CAT/PET Scan (Routine) Status Reason Specialty Diagnoses / Referred By Referred To Procedures Contact Contact Pending Review Diagnoses Generalized abdominal pain Nowpiero, Procedures CT ABDOMEN PELVIS WITH IV CONTRAST JOYCE Walker [address] [place] [address] Reason for Visit Reason Comments ER F/U [facility]/ for stomach pain Encounter Details Date Type Department Care Team Description 09/24/2019 Office Visit [facility] Denise Perez, Generalized abdominal pain (Primary Dx); 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 amphetamine-dextroamphet Take 20 mg by 0 Active amine (ADDERALL XR) 20 mouth TWICE MG Oral CAPSULE SR 24 HR DAILY. citalopram (CELEXA) 20 Take 20 mg by 0 Active MG Oral Tab mouth DAILY. lamotrigine (LAMICTAL) Take 100 mg by 0 Active 100 MG Oral Tab mouth DAILY. Varenicline Tartrate 0.5 Take 1 Package 1 Kit 0 03/20/2019 Active MG X 11 & 1 MG X 42 Oral by mouth MiscIndications: Smoking DIRECTED. trying to quit mometasone (NASONEX) 50 [place] 2 Sprays 3 Each 2 05/02/2019 Active MCG/ACT Nasal in nose DAILY. SuspensionIndications: Dx J 31.0 Chronic rhinitis, ETD (Eustachian tube dysfunction), bilateral Omeprazole 40 MG Oral TAKE ONE CAPSULE 90 Cap 1 09/02/2019 Active CAPSULE DELAYED BY MOUTH BEFORE RELEASEIndications: BREAKFAST Gastroesophageal reflux disease, esophagitis presence not specified documented as of this encounter (statuses as of 09/24/2019) Active Problems Problem Noted Date Anxiety and depression ADD (attention deficit disorder) Celiac disease GERD (gastroesophageal reflux disease) documented as of this encounter (statuses as of 09/24/2019) Immunizations Name Administration Dates Next Due PNEUMOCOCCAL POLYSACCHARIDE VACCINE 09/26/2018 documented as of this encounter Social History Tobacco Use Types Packs/Day Years Used Date Current Every Day Smoker 1 8 Smokeless Tobacco: Never Used Alcohol Use Drinks/Week oz/Week Comments Yes few drinks on the weekend Intimate Partner Violence Answer Date Recorded Within the last year, have you been afraid of your partner or No 09/24/2019 ex-partner? Within the last year, have you been humiliated or emotionally No 09/24/2019 abused in other ways by your partner or ex-partner? Within the last year, have you been kicked, hit, slapped, or No 09/24/2019 otherwise physically hurt by your partner or ex-partner? Within the last year, have you been raped or forced to have any No 09/24/2019 kind of sexual activity by your partner or ex-partner? Sex Assigned at Date Recorded Not on file documented as of this encounter Last Filed Vital Signs Vital Sign Reading Time Taken Comments Blood Pressure 138/86 09/24/2019 7:02 AM EST Pulse 89 09/24/2019 7:02 AM EST Temperature 36.3 09/24/2019 7:02 AM EST C (97.3 F) Respiratory Rate - - Oxygen Saturation 99% 09/24/2019 7:02 AM EST Inhaled Oxygen Concentration - - Weight 95.3 kg (210 lb) 09/24/2019 7:02 AM EST Height 177.8 cm (5' 10") 09/24/2019 7:02 AM EST Body Mass Index 30.13 09/24/2019 7:02 AM EST documented in this encounter Patient Instructions Patient InstructionsDenise Perez NP - 09/24/2019 7:00 AM ESTCt scan is ordered - we will call you to schedule this. Schedule ultrasound of the lump on your forehead. Please schedule office visit in the next week or so to establish and for medication refills. If abdominal pain worsens or you develop fevers, please return to the ER. documented in this encounter Progress Notes Denise Perez NP - 09/24/2019 7:00 AM EST PATIENT: Kevyn Del Valle : 1990 DATE OF SERVICE: 09/24/2019 CHIEF COMPLAINT: Chief Complaint Patient presents with ? ER F/U [facility] 09/22 for stomach pain Subjective HISTORY OF PRESENT ILLNESS: Kevyn Del Valle is a 29-y.o. male. HPI Review of the hospitalization: I am seeing for transition of care following Emergency Room evaluation at [facility]. The date of emergency room visit was 09/23/19. Seen in ER for RLQ abd pain x2 weeks, no trauma. Standing makes pain worse. No prior abd surgeries. No fevers or chills. No dysuria. Eating and drinking well. Normal BM's. Pain radiating into right groin. No testicular pain. Some pain in right flank. Tests: *Testicular US: 1) No sonographic features of torsion. Please not that partial or intermittent torsion may be sonographically normal. 2) No testicular parenchymal mass. 3) Scattered testicular parenchymal calcifications, not meeting criteria for testicular microlithiasis. 4) No sonographic abnormality in the area of right inguinal pain. *CT Abd/Pelvis with out contrast: No obstructive uropathy is noted. Normal appendix. In the head of the pancreas there is a low density area which is unclear the origin gestation. This may representdiverticula from bowel versus cystic lesion in the pancrease. Contrast enhanced CT of the abdomen and pelvis may be helpful for further evaluation. Oral contrast was also helpful. This could be doneas an outpatient. *Urinalysis: +Hematuria. *CMP/CBC - unremarkable. I reviewed the emergency room note, discharge instructions, and pertinent additional documentation obtained during the visit. I reconciled the medications. The tests that were not available at the time of discharge were reviewed. Additional tests which are not yet available include: Blood work done, no results yet. Today: Still having the RLQ pain, about a 6/10. Radiating down into groin, sometimes into his back. +nausea, no vomiting. BM's are ok. Urinating ok. He does have mild pain in RUQ but not as much as in RLQ. Onset was 2 weeks ago. Getting progressively worse over that period of time. Not discharged with any medications. Temps in 99's, nothing above. No hot/cold chills, no malaise fatigue or body aches (fatigue sometimes but normal for him.). Getting headaches for the past week at night - takes ibuprofen and will go away. Every night for one week. Whole head pain. A week ago felt like he has a lump on the right side of his forehead - when he pushes on it, both ofhis hands and feet becoming tingling. After he stops pushing on it will take about 10 minutes for the tingling to go away. No etoh or drug use reported. Past Medical History: Diagnosis Date ? ADD (attention deficit disorder) ? Anxiety and depression ? Celiac disease ? GERD (gastroesophageal reflux disease) ? PUD (peptic ulcer disease) Family History Problem Relation Age of Onset ? Thyroid Mother ? Fibromyalgia Mother ? No Known Problems Brother Current Outpatient Medications Medication Sig ? amphetamine-dextroamphetamine (ADDERALL XR) 20 MG Oral CAPSULE SR 24 HR Take 20 mg by mouth TWICE DAILY. ? amphetamine-dextroamphetamine (ADDERALL, 10MG,) 10 MG Oral Tab Take 1 Tab by mouth TWICE DAILY. ? citalopram (CELEXA) 20 MG Oral Tab Take 20 mg by mouth DAILY. ? lamotrigine (LAMICTAL) 100 MG Oral Tab Take 100 mg by mouth DAILY. ? mometasone (NASONEX) 50 MCG/ACT Nasal Suspension [place] 2 Sprays in nose DAILY. Dx J 31.0 ? Omeprazole 40 MG Oral CAPSULE DELAYED RELEASE TAKE ONE CAPSULE BY MOUTH BEFORE BREAKFAST ? Varenicline Tartrate 0.5 MG X 11 & 1 MG X 42 Oral Misc Take 1 Package by mouth DIRECTED. No current facility-administered medications for this visit. Allergies Allergen Reactions ? Amoxicillin Hives Social History Socioeconomic History ? Marital status: Single Spouse name: Not on file ? Number of children: Not on file ? Years of education: Not on file ? Highest education level: Not on file Occupational History ? Not on file Social Needs ? Financial resource strain: Not on file ? Food insecurity Worry: Not on file Inability: Not on file ? Transportation needs Medical: Not on file Non-medical: Not on file Tobacco Use ? Smoking status: Current Every Day Smoker Packs/day: 1.00 Years: 8.00 Pack years: 8.00 ? Smokeless tobacco: Never Used Substance and Sexual Activity ? Alcohol use: Yes Comment: few drinks on the weekend ? Drug use: Not Currently ? Sexual activity: Yes Partners: Female Lifestyle ? Physical activity Days per week: Not on file Minutes per session: Not on file ? Stress: Not on file Relationships ? Social connections Talks on phone: Not on file Gets together: Not on file Attends pentecostal service: Not on file Active member of club or organization: Not on file Attends meetings of clubs or organizations: Not on file Relationship status: Not on file ? Intimate partner violence Fear of current or ex partner: No Emotionally abused: No Physically abused: No Forced sexual activity: No Other Topics Concern ? Not on file Social History Narrative Moved here as [place] got into grad school Work: [facility] [employer] REVIEW OF SYSTEMS: Review of Systems Constitutional: Positive for malaise/fatigue. Negative for chills and fever. HENT: Positive for ear pain (ears clogged chronically). Negative for congestion , ear discharge, hearing loss, sinus pain, sore throat and tinnitus. Eyes: Negative for blurred vision, double vision, photophobia, pain, discharge and redness. Respiratory: Negative for cough and shortness of breath. Cardiovascular: Negative for chest pain and palpitations. Gastrointestinal: Positive for abdominal pain and nausea. Negative for blood in stool, constipation,diarrhea and vomiting. Genitourinary: Negative for dysuria, flank pain, frequency, hematuria and urgency. Musculoskeletal: Negative for joint pain and myalgias. Neurological: Positive for tingling (see hpi) and headaches. Negative for dizziness, sensory change and weakness. Psychiatric/Behavioral: Negative for depression, substance abuse and suicidal ideas. The patient is not nervous/anxious and does not have insomnia. Objective PHYSICAL EXAM: VITALS: BP 138/86 (BP Location: Left arm, Patient Position: Sitting) | Pulse 89 | Temp 97.3 F(36.3 C) (Tympanic) | Ht 5' 10" (1.778 m) | Wt 210 lb (95.3 kg) | SpO2 99% | BMI 30.13 kg/m Body mass index is 30.13 kg/m . Physical Exam Vitals signs and nursing note reviewed. Constitutional: General: He is not in acute distress. Appearance: Normal appearance. He is well-developed. He is not ill-appearing. HENT: Head: Normocephalic and atraumatic. Right Ear: Hearing, tympanic membrane, ear canal and external ear normal. Left Ear: Hearing, tympanic membrane, ear canal and external ear normal. Mouth/Throat: Lips: [place]. Mouth: Mucous membranes are moist. Pharynx: Oropharynx is clear. Uvula midline. Eyes: Extraocular Movements: Extraocular movements intact. Conjunctiva/sclera: Conjunctivae normal. Pupils: Pupils are equal, round, and reactive to light. Cardiovascular: Rate and Rhythm: Normal rate and regular rhythm. Heart sounds: Normal heart sounds. No murmur. No friction rub. No gallop. Pulmonary: Effort: Pulmonary effort is normal. No respiratory distress. Breath sounds: Normal breath sounds. Abdominal: General: Abdomen is flat. Bowel sounds are normal. There is no distension. Palpations: Abdomen is soft. Abdomen is not rigid. There is no hepatomegaly, splenomegaly or mass. Tenderness: There is abdominal tenderness in the right upper quadrant, right lower quadrant and left lower quadrant. There is no right CVA tenderness, left CVA tenderness, guarding or rebound. Positive signs include Busby's sign. Negative signs include McBurney's sign. Hernia: No hernia is present. Lymphadenopathy: Head: Right side of head: No submental, submandibular, tonsillar, preauricular or posterior auricular adenopathy. Left side of head: No submental, submandibular, tonsillar, preauricular or posterior auricular adenopathy. Cervical: No cervical adenopathy. Upper Body: Right upper body: No supraclavicular adenopathy. Left upper body: No supraclavicular adenopathy. Neurological: General: No focal deficit present. Mental Status: He is alert. Psychiatric: Behavior: Behavior is cooperative. ASSESSMENT / IMPRESSION: ICD-9-CM ICD-10-CM 1. Generalized abdominal pain 789.[address] ABDOMEN PELVIS WITH IV CONTRAST 2. Hematuria, unspecified type 599.70 R31.9 URINE DIP MANUAL (AMB POCT) 3. Mass of head 784.2 R22.0 US SOFT TISSUE HEAD NECK ULTRASOUND Plan Coordination of care. - Additional testing related to hospitilization was requested today: yes See orders. I confirmed the patient's understanding of the diagnosis and plan of care. Specific education that was provided today: 1. Hematuria, unspecified type He was unable to provide a urine sample in office, given cup and will bring back sample later today. - URINE DIP MANUAL (AMB POCT) 2. Generalized abdominal pain Schedule ct abd pelvis with contrast. CMP already done at [facility] on 09/23/19. Warning signs given to return to ER. - CT ABDOMEN PELVIS WITH IV CONTRAST; Future 3. Mass of head Will check area with ultrasound. - US SOFT TISSUE HEAD NECK ULTRASOUND; Future Follow up: will schedule appointment to establish care and med refill for adhd meds. Author: Denise Perez NP 09/24/2019 07:52 documented in this encounter Plan of Treatment Date Type Specialty Care Team Description 09/24/2019 Ancillary Procedure Radiology 10/01/2019 Office Visit Family Practice Denise Perez NP [address] [id number] [phone] Name Type Priority Associated Diagnoses Order Schedule URINE DIP MANUAL (AMB POCT Routine Hematuria, unspecified Ordered: 2019 POCT) type CT ABDOMEN PELVIS WITH Imaging Routine Generalized abdominal Expected: 09/2019, IV CONTRAST pain Expires: 09/23/2020 US SOFT TISSUE HEAD Imaging Routine Mass of head Expected: 09/24/2019, NECK ULTRASOUND Expires: 09/23/2020 Health Maintenance Due Date Last Done Comments DTaP/Tdap/Td Vaccines (1 - Tdap) 2002 INFLUENZA VACCINE (#1) 2019 HIV SCREENING 09/27/2019 Postponed from 2006 (Patient refused) DEPRESSION SCREENING 09/26/2021 Postponed from 2003 (Other) PNEUMOCOCCAL 0-64 YRS Completed 09/26/2018 HEPATITIS A IMMUNIZATION SERIES Aged Out No longer eligible based on patient's age to complete this topic HPV IMMUNIZATION SERIES Aged Out No longer eligible based on patient's age to complete this topic MENINGOCOCCAL VACCINE IMM Aged Out No longer eligible based on patient's age to complete this topic documented as of this encounter Goals Goal Patient Goal Associated Recent Patient-Stated? Author Type Problems Progress Depression Depression No Isidoro Galloway screen (PHQ-9) J, total score < 5 Note: This is [...] filedocumented in this encounter Visit Diagnoses Diagnosis Hematuria, unspecified type Generalized abdominal pain Abdominal pain, generalized Mass of head Swelling, mass, or lump in head and neck documented in this encounter (Home) [phone] [place], [place] (Work) [address] documented as of this encounter Advance Directives Code Status Date Activated Date Inactivated Comments Full Code 04/12/2019 3:58 PM Does the patient have decision making capacity? Yes Order was discussed with: Patient I discussed all options and patient/surrogate requested and agreed to: Full Code
--- OUTSIDE RECORDS SUMMARY | 2019-09-30 09:18 | XMS REPORT | Summary of Care ---
:1990 Author Organization [facility] Address [address] [place] [address] Care Team Providers Name Role Phone Isidoro Galloway Primary Care Provider Unavailable Reason for Visit Reason Comments New Patient Bilateral knee pain. DOI: Years. No known injury. Patient states he's had bilateral knee pain for years and has progressively gotten worse. Films in Epic. Encounter Details Date Type Department Care Team Description 09/25/2019 [facility] Jimmy Jacinto MD Pain in both knees, [place] [address] unspecified [address] [facility] [address] ([place] [address] Dx) [place] [address] [phone] Allergies Active Allergy Reactions Severity Noted Date Comments Amoxicillin Hives 09/26/2018 documented as of this encounter (statuses as of 09/25/2019) Medications Medication Sig Dispensed Refills Start Date [...] DIRECTED. trying to quit mometasone (NASONEX) 50 [place] 2 Sprays 3 Each 2 05/02/2019 Active MCG/ACT Nasal in nose DAILY. SuspensionIndications: Dx J 31.0 Chronic rhinitis, ETD (Eustachian tube dysfunction), bilateral Omeprazole 40 MG Oral TAKE ONE CAPSULE 90 Cap 1 09/02/2019 Active CAPSULE DELAYED BY MOUTH BEFORE RELEASEIndications: BREAKFAST Gastroesophageal reflux disease, esophagitis presence not specified documented as of this encounter (statuses as of 09/25/2019) Active Problems Problem Noted Date Anxiety and depression ADD (attention deficit disorder) Celiac disease GERD (gastroesophageal reflux disease) documented as of this encounter (statuses as of 09/25/2019) Immunizations Name Administration Dates Next Due PNEUMOCOCCAL [...] Sign Reading Time Taken Comments Blood Pressure 149/93 09/25/2019 11:23 AM EST Pulse 89 09/25/2019 11:23 AM EST Temperature - - Respiratory Rate - - Oxygen Saturation - - Inhaled Oxygen Concentration - - Weight 95.3 kg (210 lb) 09/25/2019 11:23 AM EST Height 177.8 cm (5' 10") 09/25/2019 11:23 AM EST Body Mass Index 30.13 09/25/2019 11:23 AM EST documented in this encounter Progress Notes Jimmy Jacinto MD - 09/25/2019 11:30 AM EST Name: Kevyn Del Valle : 1990 Date of Service: 09/25/2019 Referring Provider: Self-Referred Primary Care Provider: Isidoro Galloway (Inactive) Chief Complaint Patient presents with ? New Patient Bilateral knee pain. DOI: Years. No known injury. Patient states he's had bilateral knee pain for years and has progressively gotten worse. Films in Epic. Past Medical History: Diagnosis Date ? ADD (attention deficit disorder) ? Anxiety and depression ? Celiac disease ? GERD (gastroesophageal reflux disease) ? PUD (peptic ulcer disease) Past Surgical History: Procedure Laterality Date ? CA CIRCUMCISION,OTHR N/A 04/12/2019 Procedure: Frenuloplasty ; Surgeon: Roger Macdonald MD; Location: MAIN OR ? SEPTOPLASTY Current Outpatient Medications Medication Sig ? amphetamine-dextroamphetamine [...] ? mometasone (NASONEX) 50 MCG/ACT Nasal Suspension [place] 2 Sprays in nose DAILY. Dx J [...] file Gets together: Not on file Attends mormon service: Not on file Active member of [...] as rosaline got into grad school Work: [employer] Family History Problem Relation Age of Onset ? Thyroid Mother ? Fibromyalgia Mother ? No Known Problems Brother ROS: Review of systems intake completed by clinical staff. I have reviewed and agree with their documentation. 29-year-old active man presents with chronic bilateral knee pain. Not always symptomatic. No history of injury. No history of locking or buckling. No history of swelling. History of celiac diseasewhich is well controlled with diet. Had x-rays yesterday which I reviewed. No significant abnormalities found. Also complains of grinding type sound on occasion. Does not play sports. Works at a long term and is on his feet constantly. Physical exam shows a healthy-appearing man in no acute distress. Alert and oriented. Bilateral knees appear normal. Skin is normal. No redness or swelling. Bilaterally there is full range of motion. Negative Marielos sign. Negative instability signs. Neurovascular status grossly intact bilateral lower extremities. Impression: As above. Plan: Symptomatic treatment. Impression: No diagnosis found. Author: Jimmy Jacinto MD 09/25/2019 11:33 This record contains sections created with voice recognition software. It has been electronically signed. A reasonable attempt at proofreading has been made. Please call with any questions or corrections. documented in this encounter Plan of Treatment Date Type Specialty Care Team Description 10/01/2019 Office Visit Family Practice Denise Perez NP [address] [place] [address] [phone] Health Maintenance Due Date Last Done Comments [...] This is an individualized lifestyle goal for Kveyn Del Valle: Please maintain a regular sleep [...] filedocumented in this encounter Visit Diagnoses Diagnosis Pain in both knees, unspecified chronicity documented in this encounter (Work) [id number] documented as of this encounter Advance Directives Code Status Date Activated Date Inactivated Comments Full Code 04/12/2019 3:58 PM Does the patient have decision making capacity? Yes Order was discussed with: Patient I discussed all options and patient/surrogate requested and agreed to: Full Code
[2019-09-30 09:22] VITALS: BP 138/78
--- NOTE | 2019-09-30 09:37 | UC ---
Back Pain HPI - HPI Summary HPI Summary: 29 year old male with no PMH, no prior h/o back/ neck pain, trauma, presents with neck pain. 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 no numbness, weakness. No decreased strength, no loss of bowel/ bladder function. 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 - History of Current Complaint Chief Complaint: UCBackPain Stated Complaint: BACK INJURY Time Seen by Provider: 09/30/19 09:26 Hx Obtained From: Patient Severity Initially: Severe Severity Currently: Severe Pain Intensity: 9 Pain Scale Used: 0-10 Numeric Back Pain: Is Discrete @ - base of neck Aggravating Factor(s): Bending - extension Alleviating Factor(s): Rest Associated Signs And Symptoms: Positive: Negative. Negative: Swelling, Redness , Fever, Weakness, Numbness, Tingling, Abdominal Pain, Flank Pain, Bladder Incontinence, Bowel Incontinence, Weight Loss, Pain with Weight Bearing Related History: Occupational Injury - Allergies/Home Medications Allergies/Adverse Reactions: Allergies Allergy/AdvReac Type Severity Reaction Status Date / Time amoxicillin Allergy Intermediate Hives Verified 09/30/19 09:22 Home Medications: Home Medications Amphetamine MIXED SALT TAB* [Adderall TAB*] 10 mg PO DAILY 09/14/18 [History Confirmed 09/30/19] Citalopram TAB* [Celexa TAB*] 20 mg PO DAILY 09/14/18 [History Confirmed ] Dextroamphetamine/Amphetamine [Adderall Xr 20 mg Capsule] 20 mg PO DAILY [History Confirmed 09/30/19] Omeprazole CAP (NF) [Prilosec CAP* 20 MG] 40 mg PO DAILY 09/14/18 [History Confirmed 09/30/19] lamoTRIgine TAB(*) [Lamictal TAB(*)] 100 mg PO DAILY 09/14/18 [History Confirmed 09/30/19] Naproxen [Naproxen 250 mg tab] 250 mg PO BID PRN #30 tablet 09/30/19 [Rx] PMH/Surg Hx/FS Hx/Imm Hx Previously Healthy: Yes - Surgical History Surgical History: Yes Surgery Procedure, Year, and Place: septoplasty. 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 Negative: Headache Psychological: Positive: Negative Is Patient Immunocompromised?: No Physical Exam Triage Information Reviewed: Yes Appearance: Well-Appearing, No Pain Distress, Well-Nourished Vital Signs: Initial Vital Signs Temp 98.8 F 09/30/19 09:19 Pulse 85 09/30/19 09:19 Resp 18 09/30/19 09:19 BP 138/78 09/30/19 09:19 Pulse Ox 99 09/30/19 09:19 Vital Signs Reviewed: Yes Eyes: Positive: Conjunctiva Clear ENT: Positive: Hearing grossly normal Respiratory: Positive: Chest non-tender, Lungs clear, Normal breath sounds, No respiratory distress, No accessory muscle use. Negative: Crackles, Rhonchi, Stridor, Wheezing Cardiovascular: Positive: RRR, No Murmur Musculoskeletal Exam: Normal Musculoskeletal: Positive: Strength Intact, ROM Intact - mild pain with extension at cervical spine, full FF, extension of rest of spine, TTP over lower cervical/ T1/2 region. mild soft tissue tenderness over right trap near origin. full ROM/ strength of shoulders, elbow, wrist, hands. 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 rad/ unlar pulses 2+ b/l Neurological Exam: Normal Neurological: Positive: Alert, Other: - patellar reflexes 2+ b/l Psychological Exam: Normal Psychological: Positive: Normal Response To Family Skin Exam: Normal Skin: Positive: Other - no ecchymosis, skin breakdown, edema. Back Pain Course/Dx - Course Course Of Treatment: Cervical strain - Naproxen 250mg twice daily x 2 days to decrease inflammation, then as needed - Increase fluid intake while taking medication - Go to ER with numbness, tingling, loss of bowel/ bladder function, decreased strength, headache not relieved by over the counter medications - Light duty x 2 days, work note given Group Home Manager: Basilio Hearn C ([id number]) Timber Sprinkler: DOMENIC ( DOMENIC) Report Date: 09/30/2019 10:13:00 Report Status: Final ====== Start of Report Content Patient Name: LUKE DE LA CRUZ Medical Record# : [id number] Ordering Physician: Mel LOONEY Acct.#: [id number] : Age: 29 Sex: M Location: [facility] Exam Date: 09/30/19937 ADM Status: REG ER Order Information: SP CERVICAL 4+VWS Accession Number: [id number] CPT: 33594 Indication: Neck pain and decreased range of motion following lifting injury. Comparison: No relevant prior exams available on the [facility] PACS for comparison. Technique: AP, open-mouth odontoid, lateral, and oblique views cervical spine. REPORT: #. Straightening relative to normal cervical lordosis without spondylolisthesis or facet subluxation at any level. # . Negative for cervical vertebral body or posterior element fracture. #. Normal thickness and contour of the prevertebral soft tissues. # Mild vertebral and plate osteophytosis throughout. Mild C4-C5, C5-C6, and C6-C7 disc space narrowing. #. The oblique views are negative for osseous foraminal stenosis. IMPRESSION: #. Straightening relative to normal cervical lordosis without spondylolisthesis or facet subluxation at any level. #. Mild multilevel degenerative spondylosis. <Electronically signed by Basilio Hearn MD in OV> 09/30/19 1009 Dictated By: Basilio Hearn MD Dictated Date/Time: 09/30/19 1006 Transcribed Date/Time: 09/30/19 1006 Copy to: CC:Alexandra Rodríguez MD; Mel LOONEY; Isidoro Galloway DO Imaging - [facility] Imaging - [facility] Imaging - [facility] [address] [place], [place] [id number] [place] [id number] [place] [id number] ph [phone]) ph [phone] ph ([phone]) End of Report Content - Differential Dx/Diagnosis Differential Diagnosis/HQI/PQRI: Strain, Sprain Provider Diagnosis: Cervical strain, acute Discharge ED - Sign-Out/Discharge Documenting (check all that apply): Patient Departure All imaging exams completed and their final reports reviewed: Yes - Discharge Plan Condition: Good Disposition: HOME Prescriptions: Naproxen [Naproxen 250 mg tab] 250 mg PO BID PRN #30 tablet PRN Reason: Pain - Moderate Patient Education Materials: Cervical Strain (ED) Forms: *Work Release Referrals: Isidoro Galloway, [Primary Care Provider] - Additional Instructions: - Naproxen 250mg twice daily x 2 days to decrease inflammation, then as needed - Increase fluid intake while taking medication - Go to ER with numbness, tingling, loss of bowel/ bladder function, decreased strength, headache not relieved by over the counter medications - Light duty x 2 days, work note given Group Home Manager: Basilio Hearn C, ([id number]) Timber Sprinkler: DOMENIC ( DOMENIC) Report Date: 09/30/2019 10:13:00 Report Status: Final ====== Start of Report Content Patient Name: ULKE DE LA CRUZ Medical Record# : [id number] Ordering Physician: Mel LOONEY Acct.#: [id number] : Age: 29 Sex: M Location: [facility] Exam Date: 09/30/19937 ADM Status: REG ER Order Information: SP CERVICAL 4+VWS Accession Number: [id number] CPT: 89327 Indication: Neck pain and decreased range of motion following lifting injury. Comparison: No relevant prior exams available on the [facility] PACS for comparison. Technique: AP, open-mouth odontoid, lateral, and oblique views cervical spine. REPORT: #. Straightening relative to normal cervical lordosis without spondylolisthesis or facet subluxation at any level. # . Negative for cervical vertebral body or posterior element fracture. #. Normal thickness and contour of the prevertebral soft tissues. # Mild vertebral and plate osteophytosis throughout. Mild C4-C5, C5-C6, and C6-C7 disc space narrowing. #. The oblique views are negative for osseous foraminal stenosis. IMPRESSION: #. Straightening relative to normal cervical lordosis without spondylolisthesis or facet subluxation at any level. #. Mild multilevel degenerative spondylosis. <Electronically signed by Basilio Hearn MD in OV> 09/30/19 1009 Dictated By: Basilio Hearn MD Dictated Date/Time: 09/30/19 1006 Transcribed Date/Time: 09/30/19 1006 Copy to: CC:Alexandra Rodríguez MD; Mel LOONEY; Isidoro Galloway DO Imaging - [facility] Imaging [facility] Urgent [facility] Imaging [facility] [address] [address] ph [phone] ph ) ph ([phone]) End of Report Content - Billing Disposition and Condition Condition: GOOD Disposition: Home
== END 2019-09-30 10:23 | disposition home or self-care (01) ==
LOC: UCEAST 09:10
DX: S16.1XXA Strain of muscle, fascia and tendon at neck level, initial encounter (principal); F17.290 Nicotine dependence, other tobacco product, uncomplicated; M40.40 Postural lordosis, site unspecified; M53.82 Other specified dorsopathies, cervical region; M47.892 Other spondylosis, cervical region; Z88.0 Allergy status to penicillin; X58.XXXA Exposure to other specified factors, initial encounter; Y92.9 Unspecified place or not applicable
CPT/HCPCS: 72050; 99212; G0463